=== PATIENT | male | born 1985 | race Caucasian/White ===

== ENCOUNTER 2024-08-17 17:54 | Observation (INO) | payer OTHER ==
[2024-08-17] MEDS: MORPHINE SULFATE 4 MG/ML SYRINGE IVP STA (18:53)
[2024-08-17] MEDS: PIPERACILLIN-TAZOBACTAM 3.375 GM in SODIUM CHLORIDE 0.9% 100 ML IVPB ONE (18:55)
--- NOTE | 2024-08-17 18:57 | ED ---
Abdominal Pain HPI - General Chief Complaint: Abdominal Pain Stated Complaint: Abd pain Time Seen by Provider: 08/17/24 18:05 Source: patient, EMS Mode of arrival: ambulatory Limitations: no limitations - History of Present Illness Initial Comments: 38-year-old male presents to the emergency department as a transfer from [facility]. Patient states that last night he developed right lower quadrant abdominal pain which radiates over to his left lower abdomen. He has had associated anorexia. He went into [facility] and they found that he had acute appendicitis. He was given Unasyn and transferred for surgical evaluation. He did receive 4 morphine. Continues to have 6 out of 10 pain. He denies any vomiting. No history of abdominal surgeries. No other alleviating, precipitating or modifying factors - Related Data Home Medications Medication Instructions Recorded Confirmed Atorvastatin [Lipitor] 40 mg PO HS 08/17/24 08/17/24 Famotidine 20 mg PO DAILY PRN 08/17/24 08/17/24 Ibuprofen [Motrin] 600 mg PO TID PRN 08/17/24 08/17/24 Minocycline [Minocin] 50 mg PO DAILY 08/17/24 08/17/24 Montelukast [Singulair] 10 mg PO HS 08/17/24 08/17/24 Pantoprazole Sodium [Protonix] 20 mg PO DAILY 08/17/24 08/17/24 metFORMIN HCL ER [Glucophage XR] 500 mg PO DAILY 08/17/24 08/17/24 tiZANidine [Zanaflex] 4 mg PO BID PRN 08/17/24 08/17/24 Previous Rx's Medication Instructions Recorded HYDROcodone/APAP 5-325MG [[place] 1 tab PO Q6HR PRN #10 tab 08/19/24 5-325] Levofloxacin [Levaquin] 500 mg PO DAILY 7 Days #1 tab 08/19/24 Allergies Allergy/AdvReac Type Severity Reaction Status Date / Time No Known Allergies Allergy Verified 08/17/24 19:20 Review of Systems ROS Statement: Those systems with pertinent positive or pertinent negative responses have been documented in the HPI. ROS Other: All systems not noted in ROS Statement are negative. Past Medical History Past Medical History: Asthma History of Any Multi-Drug Resistant Organisms: None Reported Past Surgical History: Orthopedic Surgery Additional Past Surgical History / Comment(s): right shoulder, left hand Past Psychological History: Bipolar Smoking Status: Current every day smoker Past Alcohol Use History: Occasional Past Drug Use History: Marijuana General Exam Limitations: no limitations General appearance: alert, in no apparent distress Head exam: Present: atraumatic, normocephalic, normal inspection Eye exam: Present: normal appearance, PERRL, EOMI. Absent: scleral icterus, conjunctival injection, periorbital swelling ENT exam: Present: normal exam, mucous membranes moist Neck exam: Present: normal inspection. Absent: tenderness, meningismus, lymphadenopathy Respiratory exam: Present: normal lung sounds bilaterally. Absent: respiratory distress, wheezes, rales, rhonchi, stridor Cardiovascular Exam: Present: regular rate, normal rhythm, normal heart sounds. Absent: systolic murmur, diastolic murmur, rubs, gallop, clicks GI/Abdominal exam: Present: soft, tenderness (Right lower quadrant), normal bowel sounds. Absent: distended, guarding, rebound, rigid Extremities exam: Present: normal inspection, full ROM, normal capillary refill. Absent: tenderness, pedal edema, joint swelling, calf tenderness Back exam: Present: normal inspection Neurological exam: Present: alert, oriented X3, CN II-XII intact Psychiatric exam: Present: normal affect, normal mood Skin exam: Present: warm, dry, intact, normal color. Absent: rash Course Vital Signs 08/17/24 08/17/24 08/17/24 18:00 20:00 20:23 Temperature 98.8 F 99.5 F 98.2 F Pulse Rate 110 H 94 Pulse Rate [ 104 H Pulse Oximetery ] Respiratory 18 17 18 Rate Blood Pressure 138/91 132/89 Blood Pressure 138/98 [Left Arm] O2 Sat by Pulse 98 96 97 Oximetry Medical Decision Making - Medical Decision Making Was pt. sent in by a medical professional or institution (, PA, MACHINE LONG GOODS HELPER, urgent care, hospital, or snf...) When possible be specific @ -Patient sent from [facility] Did you speak to anyone other than the patient for history (EMS, parent, family, police, friend...)? What history was obtained from this source @ -Spoke with EMS and transferring physician Did you review nursing and triage notes (agree or disagree)? Why? @ -I reviewed and agree with nursing and triage notes Were old charts reviewed (outside hosp., previous admission, EMS record, old EKG, old radiological studies, urgent care reports/EKG's, snf records)? Report findings @ -I reviewed the transfer report and evaluated the CT myself Differential Diagnosis (chest pain, altered mental status, abdominal pain women, abdominal pain men, vaginal bleeding, weakness, fever, dyspnea, syncope, headache, dizziness, GI bleed, back pain, seizure, CVA, palpatations, mental health, musculoskeletal)? @ -Differential Abdominal Pain Men: Appendicitis, cholecystitis, diverticulosis, ischemic bowel, pancreatitis, hepatitis, UTI, gastroenteritis, AAA, incarcerated hernia, bowel obstruction, constipation, inflammatory bowel, hepatitis, peptic ulcer disease, splenic infarction, perforated viscus, testicular torsion, this is not meant to be an all-inclusive list EKG interpreted by me (3pts min.). @ -Not done X-rays interpreted by me (1pt min.). @ -None done CT interpreted by me (1pt min.). @ -None done U/S interpreted by me (1pt. min.). @ -None done What testing was considered but not performed or refused? (CT, X-rays, U/S, labs)? Why? @ -None What meds were considered but not given or refused? Why? @ -None Did you discuss the management of the patient with other professionals (professionals i.e. , PA, MACHINE LONG GOODS HELPER, lab, RT, psych nurse, social work job titles, run boat operator, teacher, college service officer, pillowcase turner)? Give summary @ -Spoke with Dr. Molina who accepts the admission Was smoking cessation discussed for >3mins.? @ -No Was critical care preformed (if so, how long)? @ -No Were there social determinants of health that impacted care today? How? (Homel essness, low income, unemployed, alcoholism, drug addiction, transportation, low edu. Level, literacy, decrease access to med. care, usp, rehab)? @ -No Was there de-escalation of care discussed even if they declined (Discuss DNR or withdrawal of care, Hospice)? DNR status @ -No What co-morbidities impacted this encounter? (DM, HTN, Smoking, COPD, CAD, Cancer, CVA, ARF, Chemo, Hep., AIDS, mental health diagnosis, sleep apnea, morbid obesity)? @ -None Was patient admitted / discharged? Hospital course, mention meds given and route, prescriptions, significant lab abnormalities, going to OR and other pertinent info. @ -Upon arrival patient seen and evaluated in bed 6. Thorough history and physical exam was performed. I did review the transfer packet. Called and spoke with Dr. Molina. He does accept admission. I did place bridging orders to include antibiotics, pain medications and nausea medications. Patient will be made n.p.o. at midnight Undiagnosed new problem with uncertain prognosis? @ -No Drug Therapy requiring intensive monitoring for toxicity (Heparin, Nitro, Insuli n, Cardizem)? @ -No Were any procedures done? @ -No Diagnosis/symptom? @ -Acute abdominal pain, acute appendicitis Acute, or Chronic, or Acute on Chronic? @ -Acute Uncomplicated (without systemic symptoms) or Complicated (systemic symptoms)? @ -Complicated Side effects of treatment? @ -No Exacerbation, Progression, or Severe Exacerbation? @ -No Poses a threat to life or bodily function? How? (Chest pain, [place], [place], pneumonia, PE, COPD, DKA, ARF, appy, cholecystitis, CVA, Diverticulitis, Homicidal, Suicidal, threat to staff... and all critical care pts) @ -No - Lab Data Result diagrams: 08/18/24 02:52 08/18/24 02:52 Disposition Clinical Impression: Acute appendicitis Disposition: ADMITTED IP TO THIS [facility] Condition: Good Is patient prescribed a controlled substance at d/c from ED?: No Time of Disposition: 19:13 Decision to Admit Reason: Admit from EC Decision Date: 08/17/24 Decision Time: 19:14
[2024-08-17] MEDS ORDERED: NALOXONE 0.4 MG/ML 1 ML VIAL IV PRN (19:28)
[2024-08-17] MEDS ORDERED: ACETAMINOPHEN TAB 325 MG TAB PO PRN (19:28)
[2024-08-17] MEDS: SODIUM CHLORIDE 0.9% 1,000 ML IV SCH (20:12)
[2024-08-18] MEDS: PIPERACILLIN-TAZOBACTAM 3.375 GM in SODIUM CHLORIDE 0.9% 100 ML IVPB SCH (00:46)
[2024-08-18] MEDS: MORPHINE SULFATE 4 MG/ML SYRINGE IV PRN (00:58)
[2024-08-18] MEDS: ONDANSETRON 4 MG/2 ML VIAL IVP PRN (00:59)
[2024-08-18 08:46] LABS: BUN/Creat Ratio 18.43 Ratio (12.00-20.00); Blood Urea Nitrogen 12.9 mg/dL (9.0-27.0); Calcium 9.1 mg/dL (8.7-10.3); Carbon Dioxide 21.7 mmol/L (21.6-31.8); Chloride 106 mmol/L (96-109); Glucose 94 mg/dL (70-110); Potassium 3.9 mmol/L (3.5-5.5); Sodium 140 mmol/L (135-145)
[2024-08-18 09:05] LABS: Basophils # (A) 0.05 X 10*3/uL (0.00-0.10); Basophils % (A) 0.4 %; Eosinophils # (A) 0.13 X 10*3/uL (0.04-0.35); Eosinophils % (A) 1.1 %; HCT 43.9 % (39.6-50.0); HGB 15.5 g/dL (13.0-17.0); Lymphocytes # (A) 2.57 X 10*3/uL (0.90-5.00); Lymphocytes % (A) 21.5 %; MCH 31.2 pg (27.0-32.0); MCHC 35.3 g/dL (32.0-37.0); MCV 88.3 FL (80.0-97.0); Monocytes # (A) 0.86 X 10*3/uL (0.20-1.00); Monocytes % (A) 7.2 %; NRBC Per 100 WBC 0 X 10*3/uL (0.00-0.01); Neutrophils # (A) 8.29 X 10*3/uL (1.80-7.70); Neutrophils % (A) 69.5 %; Platelet Count 175 X 10*3/uL (140-440); RBC 4.97 X 10*6/uL (4.40-5.60); RDW 12.9 % (11.5-14.5); WBC 11.94 X 10*3/uL (4.50-10.00)
[2024-08-18] MEDS: IV FLUID CONTINUATION 1,000 ML IV ONE ×2 (11:22→12:05)
[2024-08-18 12:10] LABS: Glucose,Whole Blood 97 mg/dL (70-110)
[2024-08-18] MEDS: ONDANSETRON 4 MG/2 ML VIAL IVP ONE (12:12)
[2024-08-18] MEDS: DEXAMETHASONE SOD PHOSPHATE 4 MG/ML 1 ML VIAL IV ONE (12:12)
[2024-08-18] MEDS: LACTATED RINGERS 1,000 ML IV SCH (12:12)
--- NOTE | 2024-08-18 12:21 | P.GSHP ---
History of Present Illness H&P Date: 08/18/24 Chief Complaint: Right lower quadrant pain This a 38-year-old male who was transferred from outside facility. Patient with right lower quadrant pain. Patient's CAT scan suggestive of simple appendicitis. Past Medical History Past Medical History: Asthma Additional Past Medical History / Comment(s): Arthritis in hands- possible sciatic nerve issues, generalized pain History of Any Multi-Drug Resistant Organisms: None Reported Past Surgical History: Orthopedic Surgery Additional Past Surgical History / Comment(s): right shoulder and left hand procedures Past Anesthesia/Blood Transfusion Reactions: No Reported Reaction Past Psychological History: Bipolar Smoking Status: Current every day smoker Past Alcohol Use History: Occasional Past Drug Use History: Marijuana Medications and Allergies Home Medications Medication Instructions Recorded Confirmed Type Atorvastatin [Lipitor] 40 mg PO HS 08/17/24 08/17/24 History Famotidine 20 mg PO DAILY PRN 08/17/24 08/17/24 History Ibuprofen [Motrin] 600 mg PO TID PRN 08/17/24 08/17/24 History Minocycline [Minocin] 50 mg PO DAILY 08/17/24 08/17/24 History Montelukast [Singulair] 10 mg PO HS 08/17/24 08/17/24 History Pantoprazole Sodium [Protonix] 20 mg PO DAILY 08/17/24 08/17/24 History metFORMIN HCL ER [Glucophage XR] 500 mg PO DAILY 08/17/24 08/17/24 History tiZANidine [Zanaflex] 4 mg PO BID PRN 08/17/24 08/17/24 History Allergies Allergy/AdvReac Type Severity Reaction Status Date / Time No Known Allergies Allergy Verified 08/17/24 19:20 Surgical - Exam Vital Signs Temp Pulse Resp BP Pulse Ox 98.8 F 110 H 18 138/91 98 08/17/24 18:00 08/17/24 18:00 08/17/24 18:00 08/17/24 18:00 08/17/24 18:00 - General well developed, well nourished, no distress - Eyes PERRL - ENT normal pinna - Neck no masses - Respiratory normal expansion - Cardiovascular Rhythm: regular - Abdomen Right lower quadrant tenderness with rebound guarding Abdomen: soft Results - Labs 08/18/24 02:52 08/18/24 02:52 Abnormal Lab Results - Last 24 Hours (Table) 08/18/24 08/18/24 Range/Units 02:52 02:52 WBC 11.94 H (4.50-10.00) X 10*3/uL Neutrophils # 8.29 H (1.80-7.70) X 10*3/uL Anion Gap 12.30 H (4.00-12.00) mmol/L Diabetes panel 08/18/24 Range/Units 02:52 Sodium 140 (135-145) mmol/L Potassium 3.9 (3.5-5.5) mmol/L Chloride 106 (96-109) mmol/L Carbon Dioxide 21.7 (21.6-31.8) mmol/L BUN 12.9 (9.0-27.0) mg/dL Creatinine 0.7 (0.6-1.5) mg/dL Glucose 94 (70-110) mg/dL Calcium 9.1 (8.7-10.3) mg/dL Calcium panel 08/18/24 Range/Units 02:52 Calcium 9.1 (8.7-10.3) mg/dL Pituitary panel 08/18/24 Range/Units 02:52 Sodium 140 (135-145) mmol/L Potassium 3.9 (3.5-5.5) mmol/L Chloride 106 (96-109) mmol/L Carbon Dioxide 21.7 (21.6-31.8) mmol/L BUN 12.9 (9.0-27.0) mg/dL Creatinine 0.7 (0.6-1.5) mg/dL Glucose 94 (70-110) mg/dL Calcium 9.1 (8.7-10.3) mg/dL Adrenal panel 08/18/24 Range/Units 02:52 Sodium 140 (135-145) mmol/L Potassium 3.9 (3.5-5.5) mmol/L Chloride 106 (96-109) mmol/L Carbon Dioxide 21.7 (21.6-31.8) mmol/L BUN 12.9 (9.0-27.0) mg/dL Creatinine 0.7 (0.6-1.5) mg/dL Glucose 94 (70-110) mg/dL Calcium 9.1 (8.7-10.3) mg/dL Assessment and Plan Assessment: Acute appendicitis. Patient undergo laparoscopic appendectomy
[2024-08-18] MEDS: ACETAMINOPHEN TAB 500 MG TAB PO STA (12:24)
[2024-08-18] MEDS: HEPARIN SODIUM,PORCINE 5,000 UNIT/ML 1 ML VIAL SQ STA (12:25)
[2024-08-18] MEDS ORDERED: fentaNYL (PF) 50 MCG/ML 2 ML AMP ONE (12:45)
[2024-08-18] MEDS ORDERED: PROPOFOL 10 MG/ML 20 ML VIAL IV ONE (12:45)
[2024-08-18] MEDS ORDERED: SUCCINYLCHOLINE CHLORIDE 200 MG/10 ML VIAL IV ONE (12:45)
[2024-08-18] MEDS ORDERED: LIDOCAINE 1% INJ 10MG/ML (20 ML MDV) ONE (12:45)
[2024-08-18] MEDS ORDERED: HYDROmorphone (PF) 1 MG/ML ONE (12:45)
[2024-08-18] MEDS ORDERED: MIDAZOLAM 2 MG/2 ML VIAL ONE (12:45)
[2024-08-18] MEDS ORDERED: NEOSTIGMINE 1 MG/ML 10 ML VIAL ONE (12:45)
[2024-08-18] MEDS ORDERED: ROCURONIUM 10 MG/ML (5 ML VIAL) IV ONE (12:45)
[2024-08-18] MEDS ORDERED: GLYCOPYRROLATE 0.2 MG/ML 2 ML VIAL ONE (12:45)
[2024-08-18] MEDS ORDERED: KETAMINE HCL IN 0.9 % NACL 50 MG/5 ML SYRINGE ONE (12:45)
[2024-08-18] MEDS ORDERED: ALBUTEROL HFA INHALER INHALATION ONE (12:45)
[2024-08-18] MEDS: BUPIVACAINE (PF) 0.25% 30 ML VIAL SQ ONE (13:12)
--- NOTE | 2024-08-18 13:36 | P.OP ---
Date of Procedure: 08/18/24 Preoperative Diagnosis: Acute appendicitis Postoperative Diagnosis: Acute appendicitis Procedure(s) Performed: Laparoscopic appendectomy Anesthesia: KIMO Surgeon: Brody Molina Estimated Blood Loss (ml): 5 Pathology: other (Appendix) Condition: stable Disposition: PACU Description of Procedure: R the patient's placed on the operating table in the supine position. The patient received general anesthesia. The abdomen was prepped and draped in the usual sterile fashion. The skin was anesthetized 1% local Xylocaine at the trocar sites. Using an 11 blade the skin was incised at the umbilicus. The umbilicus was grasped with a Almyra clamp and then a Veress needle was placed into the peritoneal cavity. Position of the Veress needle was confirmed with positive drop test. After adequate insufflation a 5 mm trocar was placed into the peritoneal cavity. The abdomen was further insufflated. And then the laparoscope was placed in the peritoneal cavity. Next a 5 mm trocar was placed in the midline suprapubic position. And then a 10 mm trocar was placed in the midline epigastric position. The patient was rotated with the right side up and in Trendelenburg. The appendix was visualized. The appendix appeared to be inflamed. The appendix was grasped and then using the Harmonic scissors the mesoappendix was divided. A PDS Endoloop was then placed around the base of the appendix. And then the appendix was divided using Harmonic scissors. The appendix was placed into an Endo Catch and brought out through the 10 mm trocar site. The abdomen was irrigated. There is no bleeding seen. The trochars withdrawn. The skin was closed interrupted 3-0 Monocryl suture. Dermabond dressing was applied. Patient was sent to recovery room in stable condition.
[2024-08-18] MEDS ORDERED: HYDROmorphone 1 MG/ML 1 ML SYRINGE IVP PRN (13:37)
[2024-08-19] MEDS ORDERED: HYDROmorphone 0.5 MG/0.5 ML SYRINGE IVP PRN (07:00)
[2024-08-19] MEDS: ENOXAPARIN 40 MG/0.4 ML SYRINGE SQ SCH (08:06)
[2024-08-19] MEDS ORDERED: tiZANidine 4 MG TAB PO PRN (09:34)
--- NOTE | 2024-08-19 11:07 | P.DS ---
Providers Date of admission: 08/17/24 19:30 Expected date of discharge: 08/19/24 Attending physician: Brody Molina Consults: 08/18/24 13:37 Consult Physician Routine Consulting Provider: Manuel Gamez Consult Reason/Comments: Comanagement Do you want consulting provider notified?: Yes Primary care physician: [facility] Course: This is a 38-year-old male who underwent laparoscopic appendectomy for acute appendicitis. Patient did well postoperative. Procedures: Laparoscopic appendectomy Patient Condition at Discharge: Good Plan - Discharge Summary Discharge Rx Participant: No New Discharge Prescriptions: New Levofloxacin [Levaquin] 500 mg PO DAILY 7 Days #1 tab HYDROcodone/APAP 5-325MG [[place] 5-325] 1 tab PO Q6HR PRN #10 tab PRN Reason: Pain No Action Minocycline [Minocin] 50 mg PO DAILY Ibuprofen [Motrin] 600 mg PO TID PRN PRN Reason: Pain Montelukast [Singulair] 10 mg PO HS Atorvastatin [Lipitor] 40 mg PO HS Famotidine 20 mg PO DAILY PRN PRN Reason: Heartburn metFORMIN HCL ER [Glucophage XR] 500 mg PO DAILY tiZANidine [Zanaflex] 4 mg PO BID PRN PRN Reason: Muscle Spasm Pantoprazole Sodium [Protonix] 20 mg PO DAILY Discharge Medication List Atorvastatin [Lipitor] 40 mg PO HS 08/17/24 [History] Famotidine 20 mg PO DAILY PRN 08/17/24 [History] Ibuprofen [Motrin] 600 mg PO TID PRN 08/17/24 [History] Minocycline [Minocin] 50 mg PO DAILY 08/17/24 [History] Montelukast [Singulair] 10 mg PO HS 08/17/24 [History] Pantoprazole Sodium [Protonix] 20 mg PO DAILY 08/17/24 [History] metFORMIN HCL ER [Glucophage XR] 500 mg PO DAILY 08/17/24 [History] tiZANidine [Zanaflex] 4 mg PO BID PRN 08/17/24 [History] HYDROcodone/APAP 5-325MG [[place] 5-325] 1 tab PO Q6HR PRN #10 tab 08/19/24 [Rx] Levofloxacin [Levaquin] 500 mg PO DAILY 7 Days #1 tab 01/01/25 [Rx] Follow up Appointment(s)/Referral(s): Jessica Kaufman MD [Primary Care Provider] - 1-2 days Brody Molina MD [STAFF PHYSICIAN] - 1 Week
[2024-08-19 13:36] VITALS: BP 132/89; PULSE 88; RESP 18; TEMP 98
--- NOTE | 2024-08-19 16:05 | P.CONS ---
History of Present Illness - Reason for Consult Consult date: 08/19/24 - History of Present Illness History of present illness: 38-year-old male patient with past medical history significant for asthma, hyperlipidemia who was transferred from [facility]. Patient had right lower quadrant abdominal pain night prior to presentation radiating to the left lower abdomen, also had associated anorexia. He went into [facility] and was found to have acute appendicitis, was given Unasyn and transferred to [facility] for surgical evaluation.Vital stable. Patient underwent laparoscopic appendicectomy on 08/18/2024. Internal medicine consulted for medical management. Patient denied any fever, chills, nausea, vomiting, diarrhea, dysuria urgency frequency weakness or numbness of the extremities, headache, sore throat, productive cough, chest pain, palpitations. Complaining of mild abdominal discomfort around the incisions. Tolerating p.o. intake. Patient is afebrile, heart rate 88, respiratory rate 18, blood pressure 132/89, saturating 96% on room air. Labs reviewed, on presentation WBCs were 11.9, hemoglobin 15.5, platelet 175. BMP was unremarkable. Assessment and plan: Acute appendicitis: Status post laparoscopic appendicectomy Patient presented with right lower quadrant abdominal pain, CT showed acute appendicitis, patient underwent laparoscopic appendicectomy 08/17/2024. Management per general surgery Hyperlipidemia: Continue statin History of asthma: Stable PHYSICAL EXAMINATION: GENERAL: The patient is A&O x3, NAD HEENT: EOMI, Sclerae anicteric, Moist Mucous membranes Neck: Supple, Non tender, No JVD PULMONARY: Equal breath souds B/L, No wheezing, No crackles. CARDIOVASCULAR: S1, S2 present. No murmurs, rubs, or gallops. ABDOMEN: Soft, nontender, nondistended, normoactive bowel sounds. No guarding or rebound tenderness. Surgical incisionintact, no redness or discharge. MUSCULOSKELETAL: No edema, No cyanosis. No clubbing. Normal ROM. Intact peripheral pulses. NEUROLOGICAL: CN 2-12 grossly intact. No FND REVIEW OF SYSTEMS: CONSTITUTIONAL: No fever, no malaise, no fatigue. HEENT: No recent visual problems or hearing problems. Denied any sore throat. CARDIOVASCULAR: No chest pain, orthopnea, PND, no palpitations, no syncope. PULMONARY: No shortness of breath, no cough, no hemoptysis. GASTROINTESTINAL: No diarrhea, no nausea, no vomiting, no abdominal pain. NEUROLOGICAL: No headaches, no weakness, no numbness. HEMATOLOGICAL: Denies any bleeding or petechiae. GENITOURINARY: Denies any burning micturition, frequency, or urgency. MUSCULOSKELETAL/RHEUMATOLOGICAL: Denies any joint pain, swelling, or any muscle pain. ENDOCRINE: Denies any polyuria or polydipsia. The rest of the 14-point review of systems is negative. Dictation was produced using [employer] software. please excuse any gr ammatical, word or spelling errors. Past Medical History Past Medical History: Asthma Additional Past Medical History / Comment(s): Arthritis in hands- possible sciatic nerve issues, generalized pain History of Any Multi-Drug Resistant Organisms: None Reported Past Surgical History: Orthopedic Surgery Additional Past Surgical History / Comment(s): right shoulder and left hand procedures Past Anesthesia/Blood Transfusion Reactions: No Reported Reaction Past Psychological History: Bipolar Smoking Status: Current every day smoker Past Alcohol Use History: Occasional Past Drug Use History: Marijuana Medications and Allergies Home Medications Medication Instructions Recorded Confirmed Type Atorvastatin [Lipitor] 40 mg PO HS 08/17/24 08/17/24 History Famotidine 20 mg PO DAILY PRN 08/17/24 08/17/24 History Ibuprofen [Motrin] 600 mg PO TID PRN 08/17/24 08/17/24 History Minocycline [Minocin] 50 mg PO DAILY 08/17/24 08/17/24 History Montelukast [Singulair] 10 mg PO HS 08/17/24 08/17/24 History Pantoprazole Sodium [Protonix] 20 mg PO DAILY 08/17/24 08/17/24 History metFORMIN HCL ER [Glucophage XR] 500 mg PO DAILY 08/17/24 08/17/24 History tiZANidine [Zanaflex] 4 mg PO BID PRN 08/17/24 08/17/24 History HYDROcodone/APAP 5-325MG [[place] 1 tab PO Q6HR PRN #10 tab 08/19/24 Rx 5-325] Levofloxacin [Levaquin] 500 mg PO DAILY 7 Days #1 tab 08/19/24 Rx Allergies Allergy/AdvReac Type Severity Reaction Status Date / Time No Known Allergies Allergy Verified 08/17/24 19:20 Physical Exam Vitals: Vital Signs Temp Pulse Resp BP Pulse Ox 08/19/24 12:52 98.0 F 88 18 132/89 96 08/19/24 07:15 97.6 F 80 17 134/90 92 L 08/19/24 01:04 99.1 F 102 H 16 133/90 91 L 08/18/24 19:16 98.4 F 124 H 18 141/93 90 L 08/18/24 16:52 117 H 129/86 08/18/24 16:37 109 H 151/98 08/18/24 16:07 90 137/89 Intake and Output 08/19/24 08/19/24 08/19/24 06:59 14:59 22:59 Intake Total 1560 Balance 1560 Intake: Oral 1560 Other: # Voids 6 Results CBC & Chem 7: 08/18/24 02:52 08/18/24 02:52
[2024-08-19] MEDS ORDERED: MONTELUKAST 10 MG TAB PO SCH (21:00)
[2024-08-19] MEDS ORDERED: ATORVASTATIN 40 MG TAB PO SCH (21:00)
== END 2024-08-19 13:41 | disposition home or self-care (01) ==
LOC: SUPCPDRO 17:54 → EC 17:54 → 4SSUR 19:30
PROVIDERS: ADMIT Surgery; ATTEND Surgery
DX: K35.80 Unspecified acute appendicitis (principal); J45.909 Unspecified asthma, uncomplicated; E11.9 Type 2 diabetes mellitus without complications; F31.9 Bipolar disorder, unspecified; E78.5 Hyperlipidemia, unspecified; F17.210 Nicotine dependence, cigarettes, uncomplicated; Z79.84 Long term (current) use of oral hypoglycemic drugs; Z79.899 Other long term (current) drug therapy; Z98.890 Other specified postprocedural states
CPT/HCPCS: 96376; 96372; 96375; 96374; 99285; 88304; 80048; 85025; 44970; G0378 ×3; J2543 ×3; J2250; J0330; J2270 ×3; J1644; J1100; J2710; J2405; J2003; J1650; J3010; J1171; J2704; J0665; J1596